=== PATIENT | male | born 1930 | race Caucasian/White ===

== ENCOUNTER 2017-02-19 14:45 | Inpatient (IN) | payer OTHER, BC ==
[~2017-02-19] VITALS: Ht 182.9 cm; Wt 86.7 kg
[2017-02-19 15:59] LABS: HEMATOCRIT 43.5 % (38.0-50.0); MCH 29.7 PG (29.0-34.0); MCHC 33.1 G/DL (30.0-36.0); MCV 89.7 FL (86-99); MEAN PLAT.VOLUME 8.8 uM^3 (9.0-12.4); PLATELET COUNT 222 K/uL (156-360); RBC DIS.WIDTH-CV 12.1 % (11.8-14.6); RBC DIS.WIDTH-SD 40.3 % (39-53); RED BLOOD COUNT 4.85 M/uL (4.00-5.50); WHITE BLOOD COUNT 5.1 K/uL (4.1-10.2)
[2017-02-19 16:15] LABS: CHLORIDE 106 mEq/L (99-109); POTASSIUM 4.8 mEq/L (3.7-5.4); SODIUM 141 mEq/L (136-147)
[2017-02-19 16:17] LABS: GLUCOSE 95 mg/dL (70-99)
[2017-02-19] MEDS ORDERED: ACETAMINOPHEN500 M9 PO (16:17)
[2017-02-19 16:18] LABS: ANION GAP 8 MEQ/L (2-14)
[2017-02-19] MEDS ORDERED: TRAMADOL HCL50 MG PO (16:18)
[2017-02-19] MEDS ORDERED: ATORVASTATIN CA40 MG PO (16:19)
[2017-02-19] MEDS ORDERED: LISINOPRIL10 MG PO (16:19)
[2017-02-19] MEDS ORDERED: LEVOTHYROXINE112 MCG PO (16:19)
[2017-02-19 16:21] LABS: GFR ESTIMATE (CALCULATED) > 59 mL/min/; UREA NITROGEN (BUN) 17 mg/dL (9-23)
[2017-02-19 19:16] LABS: INTER. NORMALIZED RATIO 1.2; PROTHROMBIN TIME 11.9 (9.2-11.2)
[2017-02-19 19:26] LABS: TOTAL BILIRUBIN 0.9 mg/dL (0.0-1.0)
[2017-02-19 19:27] LABS: ALKALINE PHOSPHATASE 41 IU/L (3-129)
[2017-02-19 19:29] LABS: DIRECT BILIRUBIN 0.3 mg/dL (0.0-0.3)
[2017-02-19] MEDS ORDERED: SLEEP AID50 MG PO (20:08)
[2017-02-19 20:18] VITALS: BP 141/63
[2017-02-19 23:37] LABS: HEMATOCRIT 39.9 % (38.0-50.0); MCV 89.3 FL (86-99)
[2017-02-19 23:55] VITALS: BP 138/63
[2017-02-20 03:00] VITALS: BP 104/49
[2017-02-20 06:21] VITALS: BP 135/67
[2017-02-20 07:20] LABS: HEMATOCRIT 41.6 % (38.0-50.0); MCH 30.6 PG (29.0-34.0); MCHC 33.9 G/DL (30.0-36.0); MCV 90.2 FL (86-99); MEAN PLAT.VOLUME 8.9 uM^3 (9.0-12.4); PLATELET COUNT 205 K/uL (156-360); RBC DIS.WIDTH-CV 12.4 % (11.8-14.6); RBC DIS.WIDTH-SD 40.7 % (39-53); RED BLOOD COUNT 4.61 M/uL (4.00-5.50); WHITE BLOOD COUNT 5.3 K/uL (4.1-10.2)
[2017-02-20 07:47] LABS: ANION GAP 5 MEQ/L (2-14); CHLORIDE 106 MEQ/L (99-109); GFR ESTIMATE (CALCULATED) > 59 mL/min/; GLUCOSE 98 mg/dL (70-99); SAMPLE HEMOLYSIS CHECK 0; SAMPLE ICTERIC CHECK 0; SAMPLE LIPEMIA CHECK 0; SODIUM 142 MEQ/L (136-147); UREA NITROGEN (BUN) 11 mg/dL (9-23)
[2017-02-20 11:49] VITALS: BP 115/58
[2017-02-20 16:00] VITALS: BP 116/54
[2017-02-20 19:53] VITALS: BP 113/58
[2017-02-20 23:31] VITALS: BP 114/65
[2017-02-21 06:38] LABS: HEMATOCRIT 40.3 % (38.0-50.0); MCH 30.4 PG (29.0-34.0); MCV 89.6 FL (86-99); MEAN PLAT.VOLUME 8.9 uM^3 (9.0-12.4); PLATELET COUNT 208 K/uL (156-360); RBC DIS.WIDTH-CV 12.3 % (11.8-14.6); RBC DIS.WIDTH-SD 40.1 % (39-53); WHITE BLOOD COUNT 5.1 K/uL (4.1-10.2)
[2017-02-21 07:08] LABS: ANION GAP 7 MEQ/L (2-14); CHLORIDE 109 MEQ/L (99-109); GFR ESTIMATE (CALCULATED) > 59 mL/min/; GLUCOSE 94 mg/dL (70-99); SAMPLE HEMOLYSIS CHECK 0; SAMPLE ICTERIC CHECK 0; SAMPLE LIPEMIA CHECK 0; SODIUM 143 MEQ/L (136-147); UREA NITROGEN (BUN) 9 mg/dL (9-23)
[2017-02-21 07:12] VITALS: BP 114/55
[2017-02-21 07:14] LABS: POTASSIUM 3.8 MEQ/L (3.7-5.4)
[2017-02-21 15:45] VITALS: BP 152/70
[2017-02-21 17:34] LABS: URINE TOTAL PROTEIN < 4 MG/DL (0-10)
[2017-02-21] MEDS ORDERED: CIPRO500 MG PO ×2 (18:33→18:35)
[2017-02-21] MEDS ORDERED: FLAGYL500 MG PO ×2 (18:33→18:35)
[2017-02-22 13:47] LABS: ALBUMIN 3.57 G/DL (3.6-4.9); ALBUMIN PERCENT 62.7 %; ALPHA-1 GLOBULIN 0.22 G/DL (0.15-0.40); ALPHA-1 PERCENT 3.9 %; ALPHA-2 GLOBULIN 0.74 G/DL (0.45-0.85); BETA PERCENT 9.5 %; GAMMA PERCENT 10.9 %; SERUM GEL NO. 80-6
[2017-02-27 13:50] LABS: URINE GEL NUMBER 81-4
== END 2017-02-21 19:10 | disposition home or self-care (01) | DRG 378 ==
LOC: EME 14:45 → EDOF 18:30 → 5WEST 18:30 → 5EAST 02-20 10:34 → 5WEST 02-20 10:34 → 5EAST 02-20 19:37
PROVIDERS: Hospitalist; Internal Medicine Gastroenterology
DX: K92.1 Melena (principal); K52.9 Noninfective gastroenteritis and colitis, unspecified; K57.32 Diverticulitis of large intestine without perforation or abscess without bleeding; E03.9 Hypothyroidism, unspecified; E78.5 Hyperlipidemia, unspecified; G89.29 Other chronic pain; M54.9 Dorsalgia, unspecified; H91.90 Unspecified hearing loss, unspecified ear; I10 Essential (primary) hypertension; M89.58 Osteolysis, other site
CPT/HCPCS: 74177; 80048; 80069; 80076; 84165; 84166; 85014; 85018; 85027; 85610; 85730; 86900; 86901; 87493; 87506; 93005; 99281; 99285; C9113; G0378; J0744; J2405; S0030

== ENCOUNTER 2017-09-20 10:56 | Inpatient (IN) | payer OTHER, BC ==
[~2017-09-20] VITALS: Ht 185.4 cm; Wt 91.2 kg
[~2017-09-20 10:56] MED LIST: ACETAMINOPHEN500 M9 PO; ATORVASTATIN CA40 MG PO; CIPRO500 MG PO; FLAGYL500 MG PO; LEVOTHYROXINE112 MCG PO; LISINOPRIL10 MG PO; SLEEP AID50 MG PO; TRAMADOL HCL50 MG PO
[2017-09-20 12:07] LABS: HEMATOCRIT 46.1 % (38.0-50.0); HEMOGLOBIN 15.7 G/DL (12.5-16.6); MCH 31.1 PG (29.0-34.0); MCHC 34.1 G/DL (30.0-36.0); MCV 91.3 FL (86-99); PLATELET COUNT 230 K/uL (156-360); RBC DIS.WIDTH-CV 12.4 % (11.8-14.6); RBC DIS.WIDTH-SD 41.6 % (39-53); RED BLOOD COUNT 5.05 M/uL (4.00-5.50); WHITE BLOOD COUNT 4.5 K/uL (4.1-10.2)
[2017-09-20 12:22] LABS: CHLORIDE 105 mEq/L (99-109); POTASSIUM 4.6 mEq/L (3.7-5.4); SODIUM 141 mEq/L (136-147)
[2017-09-20 12:23] LABS: GLUCOSE 114 mg/dL (70-99)
[2017-09-20 12:27] LABS: CREATININE 0.8 mg/dL (0.6-1.3); GFR ESTIMATE (CALCULATED) > 59 mL/min/ (58.99-99999)
[2017-09-20 12:28] LABS: UREA NITROGEN (BUN) 16 mg/dL (9-23)
[2017-09-20] MEDS ORDERED: CITRUCEL907 G1 PO (16:20)
[2017-09-20] MEDS ORDERED: CITRUCEL PO (16:23)
[2017-09-20] MEDS ORDERED: MIRALAX17 GM PO (16:24)
[2017-09-20 18:41] LABS: APPEARANCE CLEAR ((CLEAR)); BILIRUBIN NEGATIVE; BLOOD NEGATIVE; COLOR STRAW ((YELLOW)); GLUCOSE (STRIP) NEGATIVE; KETONES NEGATIVE; LEUKOCYTES NEGATIVE; NITRITE NEGATIVE; PROTEIN (STRIP) NEGATIVE; SPECIFIC GRAVITY 1.025 (1.000-1.030); UCUL ADDED? NO; UROBILINOGEN 0.2 MG/DL (0.2-1.0)
[2017-09-21 00:17] VITALS: BP 121/57
[2017-09-21 00:29] VITALS: BP 121/57
[2017-09-21 03:02] VITALS: BP 108/53
[2017-09-21 06:54] LABS: BASOPHIL (%) 0.2 % (0-1); EOSINOPHIL (%) 0 % (0-5); HEMATOCRIT 41.2 % (38.0-50.0); IMMATURE GRANULOCYTE (%) 0.3 % (0.0-0.7); LYMPHOCYTE COUNT 0.7 K/uL (1.0-2.8); MCH 30.3 PG (29.0-34.0); MCV 89.2 FL (86-99); MONOCYTE (%) 2.6 % (3-12); MONOCYTE COUNT 0.2 K/uL (0-0.8); NEUTROPHIL (%) 85.9 % (45-76); NEUTROPHIL COUNT 5.6 K/uL (1.8-6.4); PLATELET COUNT 215 K/uL (156-360); RBC DIS.WIDTH-CV 12.1 % (11.8-14.6); RBC DIS.WIDTH-SD 39.7 % (39-53); RED BLOOD COUNT 4.62 M/uL (4.00-5.50); WHITE BLOOD COUNT 6.5 K/uL (4.1-10.2)
[2017-09-21] MEDS ORDERED: ONDANSETRON HCL8 MG PO (06:56)
[2017-09-21] MEDS ORDERED: DILAUDID2 MG PO (06:57)
[2017-09-21 07:29] VITALS: BP 107/51
[2017-09-21 11:09] VITALS: BP 109/53
== END 2017-09-21 15:13 | disposition home or self-care (01) | DRG 341 ==
LOC: EME 10:56 → SDC 20:44 → EME 20:44 → 2EAST 22:30 → 2SOUTH 22:30 → ENRESERV 22:31 → 2EAST 09-21 00:13
PROVIDERS: Physician Assistant; Surgery
PROC: 0DTJ4ZZ Resection of Appendix, Percutaneous Endoscopic Approach (ICD-10-PCS; principal; 2017-09-20)
DX: K35.80 Unspecified acute appendicitis (principal); K57.31 Diverticulosis of large intestine without perforation or abscess with bleeding; I10 Essential (primary) hypertension; E03.9 Hypothyroidism, unspecified; E78.5 Hyperlipidemia, unspecified; M19.90 Unspecified osteoarthritis, unspecified site
CPT/HCPCS: 74177; 80048; 81003; 85025; 85027; 86850; 86900; 86901; 88304; 93005; 99281; 99284; J0131; J1644; J2250; J2543; J3010; J7030